=== PATIENT | female | born 1975 | race Caucasian/White ===

== ENCOUNTER 2021-03-19 21:17 | Emergency (ER) | payer SELFPAY ==
[2021-03-19] MEDS ORDERED: ACETAMINOPHEN 500 MG TAB PO ONE (21:28)
[2021-03-20 07:05] VITALS: BP 105/59
--- NOTE | 2021-03-20 07:17 | Emergency Department Report ---
ED Fever HPI - General Chief Complaint: Fever Stated Complaint: NAUSEA/COVID EXPOSURE Time Seen by Provider: 03/20/21 06:50 Source: patient - History of Present Illness Initial Comments: 45-year-old -[place] female presents to the emergency room for fever and stating she had passed out while taking a hot shower. Patient reports she recently had liposuction and tummy tuck 3 weeks ago. Patient states that she had been running a fever and had been nauseated. Patient does endorse her is Covid positive. She states her plastic surgeon soon. Here to be seen. Patient states she has been sending pictures of her wound to her plastic surgeon. Patient has not been evaluated by her surgeon virtual or in person. Patient denies any chest pain no shortness of breath no more nausea no vomiting no dysuria no abdominal pain. Just admits to a open wound she has been packing herself. As well as having a fever. Fever Severity/Quality: greater than 102 F Fever Therapy DIRECTOR DATA ARCHITECTURE: Tylenol Associated Symptoms: other (post op and open wound) ED Review of Systems ROS: Stated complaint: NAUSEA/COVID EXPOSURE Other details as noted in HPI Comment: All other systems reviewed and negative ED Past Medical Hx - Past Medical History Previous Medical History?: No - Surgical History Past Surgical History?: Yes Additional Surgical History: tummy tuck brest lift and reduction 360 lipo - Social History Smoking Status: Never Smoker Substance Use Type: None - Medications Home Medications: Home Medications Medication Instructions Recorded Confirmed Last Taken Type Sulfamethoxazole/Trimethoprim 1 each PO BID 10 Days #20 tablet 03/20/21 Unknown Rx [Bactrim DS TAB] cephALEXin [Keflex] 500 mg PO Q8HR 10 Days #30 cap 03/20/21 Unknown Rx ED Physical Exam - General Limitations: No Limitations General appearance: alert, in no apparent distress - Head Head exam: Present: atraumatic, normocephalic - Eye Eye exam: Present: normal appearance ED Course Vital Signs 03/19/21 21:23 Temperature 102.5 F H Pulse Rate 117 H Respiratory 18 Rate Blood Pressure 116/67 O2 Sat by Pulse 98 Oximetry ED Medical Decision Making - Medical Decision Making 45-year-old -[place] female presents to the emergency room for fever and stating she had passed out while taking a hot shower. Patient reports she recently had liposuction and tummy tuck 3 weeks ago. Patient states that she had been running a fever and had been nauseated. Patient does endorse her is Covid positive. She states her plastic surgeon soon. Here to be seen. Patient states she has been sending pictures of her wound to her plastic surgeon. Patient has not been evaluated by her surgeon virtual or in person. Patient denies any chest pain no shortness of breath no more nausea no vomiting no dysuria no abdominal pain. Just admits to a open wound she has been packing herself. As well as having a fever. Patient was given Tylenol prior to triage. I evaluated wound with Dr. Antonio Moeller. Both recommend that is infected we will place her on antibiotics and strongly recommend that she gets a Covid test and follow-up with her surgeon. Discussed with patient she needs to increase her water intake take her pain medication as needed. Patient verbalized understanding. Critical Care Time: Yes (35) Critical care time in (mins) excluding proc time.: 35 (wound care and repacking) Critical care attestation.: If time is entered above; I have spent that time in minutes in the direct care of this critically ill patient, excluding procedure time. ED Disposition Clinical Impression: Postsurgical fever, Wound infection after surgery, Suspected 2018-nCoV infection Disposition: HOME / SELF CARE / HOMELESS Is pt being admited?: No Does the pt Need Aspirin: No Condition: Stable Instructions: Wound Infection, [id number] Additional Instructions: Please complete your antibiotics as prescribed. Take your pain medication that has been prescribed by your surgeon. Is very important that you follow-up in the next 24 to 48 hours with your surgeon. I highly recommend a Covid test. You can get [email or web address]. Tylenol ibuprofen for fever. Prescriptions: Sulfamethoxazole/Trimethoprim [Bactrim DS TAB] 1 each PO BID 10 Days #20 tablet cephALEXin [Keflex] 500 mg PO Q8HR 10 Days #30 cap Referrals: PRIMARY CARE,MD [Primary Care Provider] - 3-5 Days Your, plastic surgeon [Other] - 3-5 Days Forms: Work/School Release Form(ED)
== END 2021-03-20 07:59 | disposition home or self-care (01) ==
LOC: ED 21:17
DX: T81.49XA Infection following a procedure, other surgical site, initial encounter (principal); Z20.822 Contact with and (suspected) exposure to COVID-19; Z98.890 Other specified postprocedural states; Z79.899 Other long term (current) drug therapy; X58.XXXA Exposure to other specified factors, initial encounter
CPT/HCPCS: 99282